=== PATIENT | female | born 1985 | race Caucasian/White ===

== ENCOUNTER 2018-09-05 01:37 | Emergency (ER) | payer OTHER ==
[~2018-09-05] VITALS: Ht 157.5 cm; Wt 90.7 kg
[2018-09-05] MEDS ORDERED: IBUPROFEN 800800 M1 PO (01:47)
[2018-09-05] MEDS ORDERED: ATENOLOL 25 MG25 M1 PO (01:47)
[2018-09-05] MEDS ORDERED: CETIRIZINE HCL5 MG PO (01:48)
[2018-09-05 02:29] LABS: ABSOLUTE BASOPHILS 0.1 thou/uL (0.0-0.2); ABSOLUTE EOSINOPHILS 0.1 thou/uL (0.0-0.7); ABSOLUTE LYMPHOCYTES 2.5 thou/uL (0.8-5.3); ABSOLUTE MONOCYTES 0.7 thou/uL (0.0-1.2); BASOPHILS 1.1 %; EOSINOPHILS 1.5 %; HEMATOCRIT 36.7 % (37.0-47.0); HEMOGLOBIN 11.6 gm/dL (12.0-15.0); LYMPHOCYTES 29.2 %; MCH 22.9 pg (26.0-34.0); MCHC 31.5 g/dL (28.0-37.0); MCV 72.7 fL (80.0-100.0); MONOCYTES 8.1 %; MPV 7.8 fl. (7.2-11.1); NUCLEATED RBCS 0 /100WBC; PLATELET COUNT* 324 thou/uL (150-400); POLYS 60.1 %; RBC 5.05 mil/uL (4.20-5.00); RDW-CV 16.4 % (10.5-14.5); WBC 8.4 thou/uL (4.0-11.0)
[2018-09-05 02:49] LABS: URINE BILIRUBIN NEGATIVE (Negative); URINE BLOOD 3+ (Negative); URINE CLARITY SL CLOUDY; URINE COLOR YELLOW; URINE GLUCOSE-RANDOM NEGATIVE (Negative); URINE KETONES NEGATIVE (Negative); URINE LEUKOCYTES-REFLEX NEGATIVE (Negative); URINE NITRITE-REFLEX NEGATIVE (Negative); URINE PROTEIN NEGATIVE (Negative); URINE SPECIFIC GRAVITY 1.025 (1.005-1.030); URINE UROBILINOGEN 0.2 E.U./dl (0.2-1.0)
[2018-09-05 02:49] LABS: CALCIUM 8.4 mg/dL (8.5-10.1); CREATININE 0.8 mg/dL (0.6-1.3); POTASSIUM 4.1 mmol/L (3.5-5.1)
[2018-09-05 02:54] LABS: ALBUMIN 3.3 g/dL (3.4-5.0); TOTAL BILIRUBIN 0.2 mg/dL (<0.1-1.0); TOTAL PROTEIN 6.9 g/dL (6.4-8.2)
[2018-09-05 04:02] LABS: CASTS None Seen /LPF (None Seen); SQUAMOUS 0-3 Few /LPF (0-3)
[2018-09-05 04:03] LABS: BACTERIA-REFLEX 1-9 Few /HPF (None Seen); CRYSTALS None Seen /LPF (None Seen); URINE RBC >20 Many /HPF (0-2); URINE WBC-REFLEX None Seen /HPF (0-5)
[2018-09-05] MEDS ORDERED: PEPCID20 MG PO (05:33)
[2018-09-05] MEDS ORDERED: CARAFATE 1 GM TA1 GM PO (05:33)
[2018-09-05 05:45] VITALS: BP 109/67
[2018-09-05 06:04] LABS: ANISOCYTOSIS 1+; MICROCYTES 1+
== END 2018-09-05 05:45 | disposition home or self-care (01) ==
LOC: M.ERS 01:37
PROVIDERS: Emergency Medicine
DX: R10.13 Epigastric pain (principal); I10 Essential (primary) hypertension; Z98.890 Other specified postprocedural states; Z90.49 Acquired absence of other specified parts of digestive tract

== ENCOUNTER 2019-07-04 21:31 | Emergency (ER) | payer OTHER ==
[~2019-07-04] VITALS: Ht 160 cm; Wt 95.3 kg
[~2019-07-04 21:31] MED LIST: ATENOLOL 25 MG25 M1 PO; CARAFATE 1 GM TA1 GM PO; CETIRIZINE HCL5 MG PO; IBUPROFEN 800800 M1 PO; PEPCID20 MG PO
[2019-07-04] MEDS ORDERED: FLEXERIL PO (22:20)
[2019-07-04 22:56] VITALS: BP 143/102
== END 2019-07-04 22:56 | disposition home or self-care (01) ==
LOC: M.ERS 21:31
DX: S86.812A Strain of other muscle(s) and tendon(s) at lower leg level, left leg, initial encounter (principal); I10 Essential (primary) hypertension; Z90.49 Acquired absence of other specified parts of digestive tract; Z98.890 Other specified postprocedural states; W50.2XXA Accidental twist by another person, initial encounter; Y93.89 Activity, other specified; Y92.89 Other specified places as the place of occurrence of the external cause; Y99.8 Other external cause status

== ENCOUNTER 2019-07-09 11:02 | Emergency (ER) | payer OTHER ==
[~2019-07-09] VITALS: Ht 154.9 cm; Wt 95.3 kg
[~2019-07-09 11:02] MED LIST changes: +FLEXERIL PO
[2019-07-09 11:16] VITALS: BP 191/107
== END 2019-07-09 11:38 | disposition home or self-care (01) ==
LOC: M.ERS 11:02
DX: S86.812A Strain of other muscle(s) and tendon(s) at lower leg level, left leg, initial encounter (principal); I10 Essential (primary) hypertension; Z90.49 Acquired absence of other specified parts of digestive tract; Z98.890 Other specified postprocedural states; X58.XXXA Exposure to other specified factors, initial encounter; Y93.89 Activity, other specified; Y92.89 Other specified places as the place of occurrence of the external cause; Y99.8 Other external cause status